=== PATIENT | female | born 1990 | race Caucasian/White ===

== ENCOUNTER 2018-07-31 16:19 | Emergency (ER) | payer MEDICAID ==
[~2018-07-31] VITALS: Ht 157.5 cm; Wt 56.6 kg
[2018-07-31] MEDS ORDERED: ACETAMINOPHEN 500 MG TABLET ONE (16:46)
[2018-07-31] MEDS ORDERED: MAALOX/HYOSCYAMINE/LIDOCAINE 45 ML BTL ONE (16:46)
[2018-07-31 17:00] LABS: BASOPHILS % (AUTO) 0 % (0-1); EOSINOPHILS # (AUTO) 0.14 x10^3/uL (0-0.4); EOSINOPHILS % (AUTO) 1 % (1-7); LYMPHOCYTES # (AUTO) 1.35 x10^3/uL (1-3.4); LYMPHOCYTES % (AUTO) 11 % (22-44); MD NO; MEAN CORPUSCULAR HEMOGLOBIN 30.2 pg (27.0-34.8); MEAN CORPUSCULAR HGB CONC 32.4 g/dL (32.4-35.8); MEAN CORPUSCULAR VOLUME 93.4 fL (80-100); MEAN PLATELET VOLUME 8.7 fL (7.4-10.4); MONOCYTES # (AUTO) 0.37 x10^3/uL (0.2-0.8); MONOCYTES % (AUTO) 3 % (2-9); NEUTROPHILS # (AUTO) 10.78 x10^3/uL (1.8-6.8); NEUTROPHILS % (AUTO) 85 % (42-75); PLATELET COUNT 318 x10^3/uL (130-400); RED BLOOD COUNT 4.33 x10^6/uL (3.82-5.3); RED CELL DISTRIBUTION WIDTH 14.9 % (9.6-15.2)
[2018-07-31] MEDS ORDERED: MAALOX/HYOSCYAMINE/LIDOCAINE 45 ML BTL PO ONE (17:00)
[2018-07-31] MEDS ORDERED: ACETAMINOPHEN 500 MG TABLET PO ONE (17:00)
[2018-07-31 17:07] LABS: ALANINE AMINOTRANSFERASE 24 U/L (12-78); ALBUMIN 3.8 g/dL (3.4-5.0); ANION GAP 7 mmol/L (5-15); CALCIUM 8.4 mg/dL (8.5-10.1); CHLORIDE 106 mmol/L (98-107); CREATININE 0.85 mg/dL (0.55-1.02)
[2018-07-31 17:11] LABS: ALKALINE PHOSPHATASE 98 U/L (45-117); TOTAL PROTEIN 7.1 g/dL (6.4-8.2)
[2018-07-31 17:13] LABS: BILIRUBIN,TOTAL < 0.1 mg/dL (0.2-1.0)
[2018-07-31] MEDS ORDERED: KETOROLAC 30 MG/1 ML ONE (17:22)
[2018-07-31] MEDS ORDERED: KETOROLAC 30 MG/1 ML IM ONE (17:30)
[2018-07-31] MEDS ORDERED: MORPHINE SULFATE 4 MG/ML, 1ML ONE (18:17)
[2018-07-31] MEDS ORDERED: ONDANSETRON 2MG/ML, 2ML ONE (18:17)
[2018-07-31] MEDS ORDERED: MORPHINE SULFATE 4 MG/ML, 1ML IVPush PRN (18:30)
[2018-07-31] MEDS ORDERED: ONDANSETRON 2MG/ML, 2ML IVPush ONE (18:30)
[2018-07-31 19:06] VITALS: BP 103/68
--- NOTE | 2018-07-31 19:15 | NUR ---
PT COMFORTABLE IN BED AT THIS TIME. PT STATES RELEIF OF PAIN TO A 2/10 FROM MEDICATION. US LEFT ROOM. MADE AWARE OF THESE RESULTS AND PT UP FOR RECHECK.
== END 2018-07-31 19:37 | disposition home or self-care (01) ==
LOC: ED 17:37
DX: R07.89 Other chest pain (principal); F41.9 Anxiety disorder, unspecified
CPT/HCPCS: 36415; 71045; 76700; 80053; 83690; 84703; 85025; 85379; 93005; 96372; 96374; 96375; 99284; J1885; J2405; J2270